=== PATIENT | female | born 1975 | race Caucasian/White ===

== ENCOUNTER → 2019-07-21 | Outpatient (CLI) | payer OTHER ==
--- NOTE | 2019-07-21 12:30 | RADIOLOGY REPORT (SQ) ---
EXAM DESCRIPTION: C SP 4 OR 5 VIEWS COMPLETED DATE/TIME: 07/21/2019 12:02 pm REASON FOR STUDY: RADICULOPATHY, CERVICAL REGION M54.12 RADICULOPATHY, CERVICAL REGION COMPARISON: None. NUMBER OF VIEWS: Five views. TECHNIQUE: AP, lateral, obliques and odontoid radiographic images acquired of the cervical spine. LIMITATIONS: None. FINDINGS: MINERALIZATION: Normal. ALIGNMENT: Straightening of the normal lordotic curvature of the cervical spine with grade 1 anteroli sthesis of C3 relative to C4. VERTEBRAE: The cervical vertebral body heights are preserved. DISCS: Discectomies at C4-C5, C5-C6 and C6-C7. The C7-T1 intervertebral disc space is narrowed. FORAMINA: No high-grade osteophytic foraminal stenosis. LATERAL AND POSTERIOR ELEMENTS: Intact. HARDWARE: ACDF hardware from C4 to C7. SOFT TISSUES: No abnormality. OTHER: No other finding. 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 There is no high-grade osteophytic foraminal stenosis. TECHNICAL DOCUMENTATION: JOB ID: [id number] [employer]- All Rights Reserved Reading location - IP/workstation name: [email or web address]
== END ==
LOC: RAD 11:38
PROVIDERS: ATTEND Nurse Practitioner Family
DX: M54.12 Radiculopathy, cervical region (principal)
CPT/HCPCS: 72050